=== PATIENT | female | born 1955 | race Caucasian/White ===

== ENCOUNTER 2020-03-15 11:04 | Outpatient (CLI) | payer OTHER, SELFPAY ==
--- NOTE | ~2020-03-15 | US_ITS ---
EXAMINATION: US carotid duplex BI DATE: 03/15/2020 15:29 INDICATION: Carotid stenosis. TECHNIQUE: Grayscale, color Doppler, and pulsed Doppler images of the cervical carotid arteries were obtained. The degree of vessel stenosis is placed in one of the following categories: normal, <50%, 5 0-69%, >=70% but less than near-occlusion, near-occlusion, or total occlusion. Note that percent sten osis relative to normal distal artery lumen diameter is indirectly measured from velocity measurement s as described by Loki, et al. Radiology 2003; 229:340-346. COMPARISON: None. FINDINGS: RIGHT: The right common carotid artery (CCA) peak systolic velocity (PSV) is 125 cm/s. The right internal ca rotid artery (ICA) PSV is 95 cm/s. The right ICA end-diastolic velocity (EDV) is 27 cm/s. The right I CA/CCA PSV ratio is 0.8. Grayscale and color Doppler images yield an estimate of <50% diameter reduct ion from plaque in the ICA. There is antegrade flow in the right vertebral artery. LEFT: The left CCA PSV is 105 cm/s. The left ICA PSV is 124 cm/s. The left ICA EDV is 39 cm/s. The left ICA /CCA PSV ratio is 1.2. Grayscale and color Doppler images yield an estimate of <50% diameter reductio n from plaque in the ICA. There is antegrade flow in the left vertebral artery. IMPRESSION: 1. <50% stenosis in the right internal carotid artery. 2. <50% stenosis in the left internal carotid artery. Reviewed, dictated and finalized at location A.
== END 2020-03-15 11:05 | disposition home or self-care (01) ==
LOC: ANHIMG 11:10
PROVIDERS: PCP Internal Medicine; Visit Provider Internal Medicine
DX: I65.23 Occlusion and stenosis of bilateral carotid arteries (principal); I73.9 Peripheral vascular disease, unspecified
CPT/HCPCS: 93880

== ENCOUNTER 2020-11-25 07:52 | Outpatient (CLI) | payer OTHER, SELFPAY ==
--- NOTE | 2020-11-25 | EST_ITS ---
Patient Info Name: Mariajose Her Age: 65 years : 1955 Gender: Female Ht: 62 in Wt: 177 lbs BSA: 1.91 m2 Technical Quality: Good Exam Date: 11/25/2020 8:27 AM Exam Location: [facility] Patient Status: Outpatient Admit Date: 11/25/2020 Staff Ordering Physician: Abdiel, Jose Roberto Dunbar MD Attending Provider: COSTA SCHMIDT DO Referring Physician: Abdiel KEYS; Exercise Technologist: Zoey Mccormack RDCS Exercise Physician: Costa Schmidt DO Exam Type: CA stress echo Study Info Indications R07.9 - Chest pain, unspecified Treadmill exercise stress echocardiogram is performed. Summary 1. 1. Negative Eulalio exercise stress test for ischemic ST changes by ECG criteria. 2. 2. Good functional capacity, achieving 7 METs of workload. 3. 3. Baseline hypertension. 4. 4. Appropriate HR response to exercise. 5. 5. Second degree AV block occurred during recovery that was transient. 6. 6. Negative stress echocardiogram for ischemia by wall motion analysis. 7. 6. Patient informed of the above results. Stress Echo Findings Left Ventricle Appropriate increase in LV endocardial thickening with systole. Appropriate augmentation of contractility with systole. No wall motion abnormality. Left Ventricle Normal LV systolic function, no wall motion abnormality. Protocol: Eulalio Stress ECG Details Stage: REST Duration (min): 9 min : 6 sec Speed (mph): 0.0 Grade (%): 0 HR (bpm): 49 SBP (mmHg): 169 DBP (mmHg): 72 METS: --- Stage: REST Duration (min): 17 min : 13 sec Speed (mph): 0.0 Grade (%): 0 HR (bpm): 51 SBP (mmHg): 169 DBP (mmHg): 72 METS: --- Stage: STAGE 1 Duration (min): 1 min : 0 sec Speed (mph): 1.7 Grade (%): 10 HR (bpm): 83 SBP (mmHg): 169 DBP (mmHg): 72 METS: --- Stage: STAGE 1 Duration (min): 2 min : 0 sec Speed (mph): 1.7 Grade (%): 10 HR (bpm): 105 SBP (mmHg): 169 DBP (mmHg): 72 METS: --- Stage: STAGE 1 Duration (min): 3 min : 0 sec Speed (mph): 1.7 Grade (%): 10 HR (bpm): 109 SBP (mmHg): 189 DBP (mmHg): 93 METS: --- Stage: STAGE 2 Duration (min): 1 min : 0 sec Speed (mph): 2.5 Grade (%): 12 HR (bpm): 129 SBP (mmHg): 189 DBP (mmHg): 93 METS: --- Stage: STAGE 2 Duration (min): 2 min : 0 sec Speed (mph): 2.5 Grade (%): 12 HR (bpm): 143 SBP (mmHg): 189 DBP (mmHg): 93 METS: --- Stage: STAGE 2 Duration (min): 2 min : 16 sec Speed (mph): 0.0 Grade (%): 0 HR (bpm): 144 SBP (mmHg): 189 DBP (mmHg): 93 METS: --- Stage: RECOVERY Duration (min): 0 min : 43 sec Speed (mph): 0.0 Grade (%): 0 HR (bpm): 108 SBP (mmHg): 189 DBP (mmHg): 93 METS: --- Stage: RECOVERY Duration (min): 1 min : 43 sec Speed (mph): 0.0 Grade (%): 0 HR (bpm): 103 SBP (mmHg): 185 DBP (mmHg): 83 METS: --- Stage: RECOVERY Duration (min): 2 min : 4
== END 2020-11-25 07:53 | disposition home or self-care (01) ==
PROVIDERS: PCP Internal Medicine; Visit Provider Internal Medicine
DX: R07.9 Chest pain, unspecified (principal); R00.1 Bradycardia, unspecified; I10 Essential (primary) hypertension
CPT/HCPCS: 93351

== ENCOUNTER 2021-05-13 07:34 | Outpatient (CLI) | payer OTHER, SELFPAY ==
--- NOTE | ~2021-05-13 | MM_ITS ---
EXAMINATION: MM screening [facility] BI w loyda HISTORY: Screening mammogram TECHNIQUE: Craniocaudal and mediolateral oblique 3-D tomosynthesis images were obtained and synthetic 2-D images were generated. CAD analysis was submitted and interpreted. COMPARISON: 02/02/2019, 07/21/1917, 10/18/2015 BREAST PARENCHYMAL COMPOSITION: There are scattered areas of fibroglandular density. FINDINGS: There is no evidence of suspicious mass, calcification, or architectural distortion to sugg est malignancy in either breast. There has been no suspicious interval change. IMPRESSION: 1. No mammographic evidence of malignancy. 2. Recommend routine screening mammography in one year. BI-RADS Category 1: Negative Reviewed, dictated and finalized at location A.
== END 2021-05-13 07:35 | disposition home or self-care (01) ==
LOC: ANHIMG 07:34
PROVIDERS: PCP Internal Medicine; Visit Provider Internal Medicine
DX: Z12.31 Encounter for screening mammogram for malignant neoplasm of breast (principal)
CPT/HCPCS: 77063; 77067

== ENCOUNTER 2024-02-24 07:36 | Outpatient (CLI) | payer MEDICARE, OTHER, SELFPAY ==
--- NOTE | ~2024-02-24 | MM_ITS ---
EXAMINATION: MM screening [facility] BI w loyda HISTORY: Screening TECHNIQUE: Craniocaudal and mediolateral oblique 3-D tomosynthesis images were obtained and synthetic 2-D images were generated. CAD analysis was submitted and interpreted. COMPARISON: Comparison to multiple prior studies sequentially, with oldest reviewed study dated 10/01. BREAST PARENCHYMAL COMPOSITION: There are scattered areas of fibroglandular density. FINDINGS: There is no evidence of suspicious mass, calcification, or architectural distortion to sugg est malignancy in either breast. There has been no suspicious interval change. IMPRESSION: 1. No mammographic evidence of malignancy. 2. Recommend routine screening mammography in one year. BI-RADS Category 1: Negative Reviewed, dictated and finalized at location B.
== END 2024-02-24 07:37 | disposition home or self-care (01) ==
LOC: ANHIMG 07:41
PROVIDERS: PCP Internal Medicine; Visit Provider Internal Medicine
DX: Z12.31 Encounter for screening mammogram for malignant neoplasm of breast (principal)
CPT/HCPCS: 77063; 77067